=== PATIENT | female | born 1975 | race Two or more races ===

== ENCOUNTER → 2017-12-07 | Outpatient (CLI) | payer OTHER | END | disposition home or self-care (01) | LOC: SONOGRAMA 08:33 | DX: E04.1 Nontoxic single thyroid nodule (principal) ==

== ENCOUNTER 2018-12-25 08:45 | Outpatient (CLI) | payer OTHER | END 2018-12-25 10:51 | disposition home or self-care (01) | LOC: SONOGRAMA 08:45 | DX: E04.2 Nontoxic multinodular goiter (principal) ==